=== PATIENT | male | born 1970 | race Asian ===

== ENCOUNTER 2024-08-31 22:31 | Inpatient (IN) | payer MEDICAID, OTHER ==
[~2024-08-31] VITALS: Ht 185.4 cm; Wt 71.2 kg
[2024-08-31] MEDS ORDERED: CLINDAMYCIN 600 MG PIGGYBACK**ER OMNI IV ONE (23:47)
[2024-08-31] MEDS ORDERED: levoFLOXacin 750MG/D5W 150 ML IV ONE (23:48)
[2024-08-31 23:57] LABS: BASOPHILS % (AUTO) 0.3 % (0.0-2.0); DIFFERENTIAL COMMENT 1; EOSINOPHILS # (AUTO) 0.1 K/uL (0.0-0.7); EOSINOPHILS % (AUTO) 2.5 % (0.0-7.0); HEMATOCRIT 35.3 % (36.7-47.1); HEMOGLOBIN 12.3 g/dL (12.5-16.3); LYMPHOCYTES # (AUTO) 0.7 K/uL (0.8-4.8); LYMPHOCYTES % (AUTO) 19.7 % (20.5-51.5); MEAN CORPUSCULAR HEMOGLOBIN 32.8 uug (23.8-33.4); MEAN CORPUSCULAR HGB CONC 35 g/dL (32.5-36.3); MEAN CORPUSCULAR VOLUME 94.1 fL (73.0-96.2); MONOCYTES # (AUTO) 0.2 K/uL (0.1-1.30); MONOCYTES % (AUTO) 6.5 % (0.0-11.0); NEUTROPHILS # (AUTO) 2.5 K/uL (1.8-8.9); PLATELET COUNT (AUTO) 112 K/uL (152-348); RED BLOOD CELL COUNT(AUTO) 3.75 MIL/uL (4.06-5.63); RED CELL DISTRIBUTION WIDTH 14.6 % (12.1-16.2); WHITE BLOOD COUNT (AUTO) 3.5 K/uL (3.6-10.2)
[2024-09-01] VITALS (7 sets, daily range): BP systolic 103–155; BP diastolic 66–82; TEMP 97.7–100.9; O2SAT 89–97
[2024-09-01] MEDS: CLINDAMYCIN PHOSPHATE IV 600 MG in IV DEXTROSE 5% 100 ML IV ONE (00:06)
[2024-09-01] MEDS: levoFLOXacin 750MG/D5W 150 ML IV ONE (00:07)
[2024-09-01] MEDS: IV NORMAL SALINE 1000 ML BAG IV ONE (00:07)
[2024-09-01 00:13] LABS: CALCIUM 9.1 mg/dL (8.5-10.1); CARBON DIOXIDE 30 mmol/L (21-32); CHLORIDE 97 mmol/L (98-107); CREATININE 1.1 mg/dL (0.6-1.3); GLUCOSE 103 mg/dL (74-106); POTASSIUM 3.9 mmol/L (3.5-5.1); SODIUM SERUM 135 mmol/L (136-145); UREA NITROGEN, BLOOD 18 mg/dL (7-18)
[2024-09-01 00:28] LABS: ALANINE AMINOTRANSFERASE 14 U/L (16-63); ALBUMIN 3.1 g/dL (3.4-5.0); ALKALINE PHOSPHATASE 72 U/L (50-136); ASPARTATE AMINOTRANSFERASE 9 U/L (15-37); BILIRUBIN,DIRECT 0.3 mg/dL (0.0-0.2); NT-PRO BNP 508 pg/mL (0-125); TOTAL PROTEIN, SERUM 7.3 g/dL (6.4-8.2)
[2024-09-01] MEDS ORDERED: MAGNESIUM HYDROXIDE 30 ML LIQUID UDC PO PRN (04:00)
[2024-09-01] MEDS ORDERED: ONDANSETRON 4 MG/2 ML VIAL IV PRN (04:00)
[2024-09-01] MEDS ORDERED: REMEDY ESSENTIAL ZINC PASTE 113 GM TP PRN (04:00)
[2024-09-01] MEDS ORDERED: ENOXAPARIN SODIUM 40 MG/0.4 ML DISP.SYRIN SQ ONE (05:05)
[2024-09-01] MEDS ORDERED: DIATR MEGLU/DIATRIZOATE SODIUM 30 ML BOTTLE ONE (06:28)
[2024-09-01] MEDS: DIATR MEGLU/DIATRIZOATE SODIUM 120 ML BOTTLE PO ONE (06:36)
[2024-09-01 07:23] LABS: BASOPHILS % (AUTO) 0.3 % (0.0-2.0); EOSINOPHILS % (AUTO) 0.9 % (0.0-7.0); HEMATOCRIT 32.9 % (36.7-47.1); HEMOGLOBIN 11.4 g/dL (12.5-16.3); LYMPHOCYTES # (AUTO) 0.4 K/uL (0.8-4.8); LYMPHOCYTES % (AUTO) 14.2 % (20.5-51.5); MEAN CORPUSCULAR HEMOGLOBIN 32.7 uug (23.8-33.4); MEAN CORPUSCULAR HGB CONC 35 g/dL (32.5-36.3); MEAN CORPUSCULAR VOLUME 94.4 fL (73.0-96.2); MONOCYTES # (AUTO) 0.2 K/uL (0.1-1.30); MONOCYTES % (AUTO) 6.3 % (0.0-11.0); NEUTROPHILS # (AUTO) 2.1 K/uL (1.8-8.9); NEUTROPHILS % (AUTO) 78.3 % (38.5-71.5); PLATELET COUNT (AUTO) 103 K/uL (152-348); RED BLOOD CELL COUNT(AUTO) 3.49 MIL/uL (4.06-5.63); RED CELL DISTRIBUTION WIDTH 14.4 % (12.1-16.2); WHITE BLOOD COUNT (AUTO) 2.7 K/uL (3.6-10.2)
[2024-09-01 07:30] LABS: DIFFERENTIAL COMMENT 1
[2024-09-01 08:17] LABS: CALCIUM 8.5 mg/dL (8.5-10.1); CREATININE 0.9 mg/dL (0.6-1.3); MAGNESIUM 1.6 mg/dL (1.8-2.4); PHOSPHOROUS 2.4 mg/dL (2.5-4.9); POTASSIUM 4.2 mmol/L (3.5-5.1)
[2024-09-01] MEDS: IV NS 1000 ML 1,000 ML IV PRN (09:50)
[2024-09-01] MEDS ORDERED: LIDOCAINE 4% TOPICAL 50 ML BOTTLE MC PRN (10:00)
[2024-09-01] MEDS: MAGNESIUM SULFATE/D5W 100 ML IV SCH (10:04)
[2024-09-01] MEDS: ACETAMINOPHEN 325 MG TABLET PO PRN (10:04)
[2024-09-01] MEDS: PANTOPRAZOLE SODIUM 40 MG VIAL IV SCH (10:05)
[2024-09-01] MEDS: ENOXAPARIN SODIUM 40 MG/0.4 ML DISP.SYRIN SQ SCH (10:05)
[2024-09-01 11:05] LABS: BAND % (MANUAL) 11 % (0-10); LYMPHOCYTES % (MANUAL) 15 % (20-40); MONOCYTES % (MANUAL) 5 % (2-10); NEUTROPHILS % (MANUAL) 69 % (42-75); PLATELET ESTIMATE DECREASED
[2024-09-01] MEDS ORDERED: ACET325T53 PO (12:42)
[2024-09-01] MEDS ORDERED: ACID1TAB12 GT (12:42)
[2024-09-01] MEDS ORDERED: ALBU2.5V38 IH (12:43)
[2024-09-01] MEDS ORDERED: ALBU2.5V13 IH (12:45)
[2024-09-01] MEDS ORDERED: BISA10SU95 RC (12:46)
[2024-09-01] MEDS ORDERED: CHLO473M5 MM (12:46)
[2024-09-01] MEDS ORDERED: CRAN450T9 GT (12:47)
[2024-09-01] MEDS ORDERED: FAMO20TA8 GT (12:53)
[2024-09-01] MEDS ORDERED: MULT-1119 GT (12:53)
[2024-09-01] MEDS ORDERED: MELA3CAP2 PO (12:53)
[2024-09-01] MEDS ORDERED: MAGN400T26 GT (12:53)
[2024-09-01] MEDS ORDERED: RIVA10TA GT (13:03)
[2024-09-01] MEDS ORDERED: POLY17PO4 GT (13:03)
[2024-09-01] MEDS ORDERED: CHOL100062 GT (13:03)
[2024-09-01] MEDS ORDERED: GUAI237L83 GT (13:03)
[2024-09-01] MEDS ORDERED: SENN8.6T19 GT (13:03)
[2024-09-01] MEDS: SODIUM PHOSPHATE MM 15 MMOL in IV NORMAL SALINE 250 ML IV ONE (18:21)
[2024-09-01] MEDS: HYDROCODONE BIT/HOMATROPINE 5 ML UDC PEG PRN (18:52)
[2024-09-02] VITALS (10 sets, daily range): BP systolic 124–145; BP diastolic 69–94; TEMP 98.3–101.2; O2SAT 90–99
[2024-09-02] MEDS ORDERED: levoFLOXacin 500 MG/D5W 500 MG in PREMIXED 1 EACH IV SCH
[2024-09-02] MEDS: LIDOCAINE 4% NEB PRN (00:24)
[2024-09-02] MEDS: ALBUTEROL SULFATE 2.5 MG/3 ML NEBU NEB PRN (00:24)
[2024-09-02] MEDS: levoFLOXacin 750MG/D5W 750 MG in PREMIXED 1 EACH IV SCH (00:28)
[2024-09-02] MEDS: GUAIFENESIN/DEXTROMETHORPHAN 5 ML UDC GT PRN (04:16)
[2024-09-02 06:14] LABS: ABG BASE EXCESS -1.7 mmol/L (-2.0-3.0); ABG HCO3 22.6 mmol/L (21.0-28.0); ABG PCO2 37.1 mmHg (35.0-48.0); ABG PH 7.403 (7.350-7.450); ABG PO2 61.3 mmHg (83.0-108.0); ABG SITE RIGHT RADIAL; ABG TOTAL HEMOGLOBIN 13.9 G/dL (13.5-17.5); AaDO2 91.7 mmHg; COHb 0.4 % (0.5-1.5); MetHb 0.1 % (0.0-1.5); O2Hb 91.1 % (94.0-98.0)
[2024-09-02 07:03] LABS: BASOPHILS % (AUTO) 0.1 % (0.0-2.0); EOSINOPHILS % (AUTO) 0.1 % (0.0-7.0); HEMATOCRIT 31.8 % (36.7-47.1); HEMOGLOBIN 10.9 g/dL (12.5-16.3); LYMPHOCYTES # (AUTO) 0.2 K/uL (0.8-4.8); LYMPHOCYTES % (AUTO) 7.4 % (20.5-51.5); MEAN CORPUSCULAR HEMOGLOBIN 32.7 uug (23.8-33.4); MEAN CORPUSCULAR HGB CONC 34 g/dL (32.5-36.3); MEAN CORPUSCULAR VOLUME 95.1 fL (73.0-96.2); MONOCYTES # (AUTO) 0.3 K/uL (0.1-1.30); MONOCYTES % (AUTO) 10.1 % (0.0-11.0); NEUTROPHILS # (AUTO) 2.4 K/uL (1.8-8.9); NEUTROPHILS % (AUTO) 82.3 % (38.5-71.5); PLATELET COUNT (AUTO) 102 K/uL (152-348); RED BLOOD CELL COUNT(AUTO) 3.35 MIL/uL (4.06-5.63); RED CELL DISTRIBUTION WIDTH 14.5 % (12.1-16.2); WHITE BLOOD COUNT (AUTO) 2.9 K/uL (3.6-10.2)
[2024-09-02 07:18] LABS: DIFFERENTIAL COMMENT 1
[2024-09-02 07:35] LABS: CALCIUM 8.2 mg/dL (8.5-10.1); PHOSPHOROUS 3.3 mg/dL (2.5-4.9); POTASSIUM 3.8 mmol/L (3.5-5.1)
[2024-09-02] MEDS: GLUCERNA 1.2 1000ML LIQUID GT PRN (09:50)
[2024-09-02 11:52] LABS: BAND % (MANUAL) 12 % (0-10); LYMPHOCYTES % (MANUAL) 15 % (20-40); METAMYELOCYTES % 3 % (0-1); MONOCYTES % (MANUAL) 8 % (2-10); NEUTROPHILS % (MANUAL) 62 % (42-75)
[2024-09-02 11:53] LABS: PLATELET ESTIMATE DECREASED
[2024-09-02] MEDS ORDERED: DIABETICSOURCE AC 1000ML LIQUID GT SCH (12:00)
[2024-09-02] MEDS ORDERED: BISACODYL 10 MG SUPP.RECT RC PRN (22:00)
[2024-09-02] MEDS ORDERED: SENNOSIDES 1 TABLET GT PRN (22:00)
[2024-09-02] MEDS ORDERED: ACETAMINOPHEN 325 MG TABLET-SA PATIENTS-PAIN ONLY PO PRN (22:00)
[2024-09-02] MEDS: MELATONIN 3 MG TABLET PO SCH (23:09)
[2024-09-03] VITALS (13 sets, daily range): BP systolic 114–149; BP diastolic 68–88; TEMP 96.8–100.4; O2SAT 91–98
[2024-09-03] MEDS: ACETAMINOPHEN 325 MG TABLET PO PRN (05:33)
[2024-09-03 07:42] LABS: BASOPHILS % (AUTO) 0.3 % (0.0-2.0); EOSINOPHILS % (AUTO) 0.9 % (0.0-7.0); HEMATOCRIT 30.7 % (36.7-47.1); HEMOGLOBIN 10.6 g/dL (12.5-16.3); LYMPHOCYTES # (AUTO) 0.6 K/uL (0.8-4.8); LYMPHOCYTES % (AUTO) 20.1 % (20.5-51.5); MEAN CORPUSCULAR HEMOGLOBIN 32.9 uug (23.8-33.4); MEAN CORPUSCULAR HGB CONC 35 g/dL (32.5-36.3); MONOCYTES # (AUTO) 0.5 K/uL (0.1-1.30); NEUTROPHILS # (AUTO) 1.8 K/uL (1.8-8.9); NEUTROPHILS % (AUTO) 61.7 % (38.5-71.5); PLATELET COUNT (AUTO) 105 K/uL (152-348); RED BLOOD CELL COUNT(AUTO) 3.23 MIL/uL (4.06-5.63); RED CELL DISTRIBUTION WIDTH 14.1 % (12.1-16.2); WHITE BLOOD COUNT (AUTO) 2.9 K/uL (3.6-10.2)
[2024-09-03 07:49] LABS: DIFFERENTIAL COMMENT 1
[2024-09-03 07:59] LABS: LYMPHOCYTES % (MANUAL) 0 % (20-40); NEUTROPHILS % (MANUAL) 0 % (42-75)
[2024-09-03] MEDS: PANTOPRAZOLE ORAL SUSPENSION 40 MG SUSPDR.PKT GT SCH (08:07)
[2024-09-03] MEDS: MULTIVITAMINS,THERAPEUTIC TABLET GT SCH (08:07)
[2024-09-03] MEDS: ACIDOPHILUS/BULGARICUS CHEW TAB GT SCH (08:08)
[2024-09-03] MEDS: MIRALAX 17 GM POWD.PACK GT SCH (08:08)
[2024-09-03 08:09] LABS: ALBUMIN 2.4 g/dL (3.4-5.0); BILIRUBIN,DIRECT 0.2 mg/dL (0.0-0.2); BILIRUBIN,TOTAL 0.5 mg/dL (0.2-1.0); CREATININE 0.9 mg/dL (0.6-1.3); MAGNESIUM 1.9 mg/dL (1.8-2.4); PHOSPHOROUS 3.5 mg/dL (2.5-4.9); POTASSIUM 3.8 mmol/L (3.5-5.1); TOTAL PROTEIN, SERUM 6.3 g/dL (6.4-8.2)
[2024-09-03] MEDS: CHLORHEXIDINE GLUCONATE 15 ML MOUTHWASH MM SCH (08:10)
[2024-09-03] MEDS ORDERED: MULTIVITAMINS 5 ML LIQUID UDC GT SCH (09:00)
[2024-09-03 09:40] LABS: THYROID STIMULATING HORMONE 0.625 mIU/mL (0.358-3.740)
[2024-09-03 13:08] LABS: HIV-1 p24 ANTIGEN NON REACTIVE (NONREACTIVE); HIV-1/2 ANTIBODY NON REACTIVE (NONREACTIVE)
[2024-09-03] MEDS: PIPERACILLIN SODIUM/TAZOBACTAM 3.375 G in IV DEXTROSE 5% 100 ML IV SCH (14:44)
[2024-09-03] MEDS: ALBUTEROL SULFATE 2.5 MG/ 0.5 ML NEBU IH PRN (16:43)
[2024-09-03] MEDS ORDERED: PIPERACILLIN SODIUM/TAZOBACTAM 4.5 G in IV DEXTROSE 5% 50 ML IV SCH (18:00)
[2024-09-03] MEDS: RIVAROXABAN 10 MG TABLET GT SCH (18:12)
[2024-09-03 20:02] LABS: *RHEUMATOID FACTOR SCREEN NEGATIVE (NEGATIVE)
[2024-09-03] MEDS: MAGNESIUM OXIDE 400 MG TABLET GT SCH (20:39)
[2024-09-03] MEDS: CHOLECALCIFEROL 1,000 UNIT TABLET GT SCH (20:39)
[2024-09-03] MEDS: DOXYCYCLINE HYCLATE IV 100 MG in IV DEXTROSE 5% 100 ML IV SCH (20:40)
[2024-09-04] VITALS (11 sets, daily range): BP systolic 108–139; BP diastolic 66–94; TEMP 97–99.6; O2SAT 91–99
[2024-09-04 06:06] LABS: BASOPHILS % (AUTO) 0.5 % (0.0-2.0); EOSINOPHILS % (AUTO) 1.1 % (0.0-7.0); HEMATOCRIT 30.4 % (36.7-47.1); HEMOGLOBIN 10.6 g/dL (12.5-16.3); LYMPHOCYTES # (AUTO) 0.4 K/uL (0.8-4.8); MEAN CORPUSCULAR HEMOGLOBIN 32.9 uug (23.8-33.4); MEAN CORPUSCULAR HGB CONC 35 g/dL (32.5-36.3); MEAN CORPUSCULAR VOLUME 94.4 fL (73.0-96.2); MONOCYTES # (AUTO) 0.4 K/uL (0.1-1.30); MONOCYTES % (AUTO) 14.4 % (0.0-11.0); NEUTROPHILS # (AUTO) 1.8 K/uL (1.8-8.9); PLATELET COUNT (AUTO) 100 K/uL (152-348); RED BLOOD CELL COUNT(AUTO) 3.22 MIL/uL (4.06-5.63); RED CELL DISTRIBUTION WIDTH 14.4 % (12.1-16.2); WHITE BLOOD COUNT (AUTO) 2.7 K/uL (3.6-10.2)
[2024-09-04 06:20] LABS: DIFFERENTIAL COMMENT 1
[2024-09-04] MEDS: FUROSEMIDE 20 MG/2 ML VIAL IV ONE (11:43)
[2024-09-05] VITALS (8 sets, daily range): BP systolic 97–130; BP diastolic 63–75; TEMP 97.3–98.6; O2SAT 91–98
[2024-09-05 05:47] LABS: ABG BASE EXCESS 6.3 mmol/L (-2.0-3.0); ABG HCO3 30.8 mmol/L (21.0-28.0); ABG PCO2 44.1 mmHg (35.0-48.0); ABG PH 7.462 (7.350-7.450); ABG PO2 72.4 mmHg (83.0-108.0); ABG SITE LEFT RADIAL; ABG TOTAL HEMOGLOBIN 11.8 G/dL (13.5-17.5); AaDO2 95.3 mmHg; COHb 0.3 % (0.5-1.5); MetHb 0.3 % (0.0-1.5); O2Hb 93.5 % (94.0-98.0)
[2024-09-05 06:28] LABS: BASOPHILS % (AUTO) 0.5 % (0.0-2.0); EOSINOPHILS # (AUTO) 0.1 K/uL (0.0-0.7); EOSINOPHILS % (AUTO) 3.2 % (0.0-7.0); HEMATOCRIT 32.1 % (36.7-47.1); HEMOGLOBIN 10.7 g/dL (12.5-16.3); LYMPHOCYTES # (AUTO) 0.8 K/uL (0.8-4.8); LYMPHOCYTES % (AUTO) 30.5 % (20.5-51.5); MEAN CORPUSCULAR HEMOGLOBIN 31.3 uug (23.8-33.4); MEAN CORPUSCULAR HGB CONC 33 g/dL (32.5-36.3); MEAN CORPUSCULAR VOLUME 94.1 fL (73.0-96.2); MONOCYTES # (AUTO) 0.3 K/uL (0.1-1.30); MONOCYTES % (AUTO) 12.7 % (0.0-11.0); NEUTROPHILS # (AUTO) 1.3 K/uL (1.8-8.9); NEUTROPHILS % (AUTO) 53.1 % (38.5-71.5); PLATELET COUNT (AUTO) 121 K/uL (152-348); RED BLOOD CELL COUNT(AUTO) 3.41 MIL/uL (4.06-5.63); RED CELL DISTRIBUTION WIDTH 13.9 % (12.1-16.2); WHITE BLOOD COUNT (AUTO) 2.5 K/uL (3.6-10.2)
[2024-09-05 06:34] LABS: DIFFERENTIAL COMMENT 1
[2024-09-05 06:43] LABS: CALCIUM 8.9 mg/dL (8.5-10.1); CREATININE 0.8 mg/dL (0.6-1.3); MAGNESIUM 2.2 mg/dL (1.8-2.4); PHOSPHOROUS 4.7 mg/dL (2.5-4.9); POTASSIUM 3.3 mmol/L (3.5-5.1)
[2024-09-05 06:49] LABS: THYROID STIMULATING HORMONE 1.597 mIU/mL (0.358-3.740)
[2024-09-05] MEDS ORDERED: POTASSIUM CHLORIDE 20 MEQ TAB.PRT.SR PO ONE (12:30)
[2024-09-05] MEDS: POTASSIUM CHLORIDE 20 MEQ POWDER PACKET GT ONE (13:52)
[2024-09-06] VITALS (10 sets, daily range): BP systolic 108–146; BP diastolic 46–85; TEMP 97.1–98.4; O2SAT 92–97
[2024-09-06 01:09] LABS: FOLATE (FOLIC ACID), SERUM >20.0 ng/mL (>3.0); HEPATITIS B SURFACE AG Negative (Negative); HEPATITIS C VIRUS ANTIBODY Non Reactive (Non Reactive)
[2024-09-06 04:10] LABS: HEPATITIS B CORE AB, IgM Negative (Negative); HEPATITIS B CORE AB, TOTAL Negative (Negative); HEPATITIS B SURFACE AB, QUAL Reactive (.)
[2024-09-06 04:10] LABS: *IMMUNOGLOBULIN G, SERUM 715 mg/dL (603-1613); IMMUNOGLOBULIN A, SERUM 1080 mg/dL (90-386); IMMUNOGLOBULIN M, SERUM 23 mg/dL (20-172)
[2024-09-06 06:59] LABS: BASOPHILS % (AUTO) 0.4 % (0.0-2.0); EOSINOPHILS # (AUTO) 0.1 K/uL (0.0-0.7); EOSINOPHILS % (AUTO) 3.7 % (0.0-7.0); HEMATOCRIT 30.7 % (36.7-47.1); HEMOGLOBIN 10.7 g/dL (12.5-16.3); LYMPHOCYTES # (AUTO) 0.9 K/uL (0.8-4.8); LYMPHOCYTES % (AUTO) 28.6 % (20.5-51.5); MEAN CORPUSCULAR HEMOGLOBIN 32.5 uug (23.8-33.4); MEAN CORPUSCULAR HGB CONC 35 g/dL (32.5-36.3); MEAN CORPUSCULAR VOLUME 92.8 fL (73.0-96.2); MONOCYTES # (AUTO) 0.3 K/uL (0.1-1.30); MONOCYTES % (AUTO) 8.4 % (0.0-11.0); NEUTROPHILS # (AUTO) 1.8 K/uL (1.8-8.9); NEUTROPHILS % (AUTO) 58.9 % (38.5-71.5); PLATELET COUNT (AUTO) 140 K/uL (152-348); RED BLOOD CELL COUNT(AUTO) 3.31 MIL/uL (4.06-5.63); RED CELL DISTRIBUTION WIDTH 14.4 % (12.1-16.2)
[2024-09-06 07:07] LABS: FREE KAPPA LT CHAINS SERUM 249.4 mg/L (3.3-19.4); FREE LAMBDA LT CHAIN SERUM 17.3 mg/L (5.7-26.3); KAPPA/LAMBDA RATIO SERUM 14.42 (0.26-1.65)
[2024-09-06 07:45] LABS: DIFFERENTIAL COMMENT 1
[2024-09-06 15:07] LABS: *ANTI-SCLERODERMA-70 AB <0.2 AI (0.0-0.9); *RNP ANTIBODIES <0.2 AI (0.0-0.9); *SJOGREN'S ANTI-SS-A <0.2 AI (0.0-0.9); *SJOGREN'S ANTI-SS-B <0.2 AI (0.0-0.9); *SMITH ANTIBODIES <0.2 AI (0.0-0.9); ANTI-DNA(DS) AB, QN <1 IU/mL (0-9); ANTI-NUCLEAR AB DIRECT Negative (Negative)
[2024-09-06 16:11] LABS: A/G RATIO 0.9 (0.7-1.7); ALBUMIN 2.9 g/dL (2.9-4.4); ALPHA-1-GLOBULIN 0.4 g/dL (0.0-0.4); ALPHA-2-GLOBULIN 0.9 g/dL (0.4-1.0); BETA GLOBULIN 1.5 g/dL (0.7-1.3); GAMMA GLOBULIN 0.6 g/dL (0.4-1.8); GLOBULIN, TOTAL 3.4 g/dL (2.2-3.9); M-SPIKE 0.9 g/dL (Not Observed); PROTEIN, TOTAL 6.3 g/dL (6.0-8.5)
[2024-09-06] MEDS ORDERED: LIDOCAINE HCL 1% 20 ML VIAL IJ PRN (17:00)
[2024-09-06] MEDS: RIVAROXABAN 10 MG TABLET GT SCH (18:53)
[2024-09-07] VITALS (8 sets, daily range): BP systolic 118–145; BP diastolic 76–88; TEMP 97.5–98.4; O2SAT 90–96
[2024-09-07] MEDS: ACETYLCYSTEINE 20% 800 MG/4 ML VIAL NEB PRN (00:06)
[2024-09-07 06:31] LABS: BASOPHILS % (AUTO) 0.3 % (0.0-2.0); EOSINOPHILS # (AUTO) 0.1 K/uL (0.0-0.7); EOSINOPHILS % (AUTO) 0.9 % (0.0-7.0); HEMATOCRIT 31.1 % (36.7-47.1); HEMOGLOBIN 10.9 g/dL (12.5-16.3); LYMPHOCYTES # (AUTO) 0.7 K/uL (0.8-4.8); LYMPHOCYTES % (AUTO) 10.2 % (20.5-51.5); MEAN CORPUSCULAR HEMOGLOBIN 32.5 uug (23.8-33.4); MEAN CORPUSCULAR HGB CONC 35 g/dL (32.5-36.3); MEAN CORPUSCULAR VOLUME 92.9 fL (73.0-96.2); MONOCYTES # (AUTO) 0.2 K/uL (0.1-1.30); MONOCYTES % (AUTO) 3.4 % (0.0-11.0); NEUTROPHILS # (AUTO) 5.6 K/uL (1.8-8.9); NEUTROPHILS % (AUTO) 85.2 % (38.5-71.5); PLATELET COUNT (AUTO) 152 K/uL (152-348); RED BLOOD CELL COUNT(AUTO) 3.35 MIL/uL (4.06-5.63); RED CELL DISTRIBUTION WIDTH 14.1 % (12.1-16.2); WHITE BLOOD COUNT (AUTO) 6.5 K/uL (3.6-10.2)
[2024-09-07 06:40] LABS: DIFFERENTIAL COMMENT 1
[2024-09-07 07:03] LABS: CREATININE 1.1 mg/dL (0.6-1.3); POTASSIUM 3.5 mmol/L (3.5-5.1)
[2024-09-07 13:09] LABS: *OCCULT BLOOD STOOL NEGATIVE (NEGATIVE)
[2024-09-07] MEDS: PIPERACILLIN SODIUM/TAZOBACTAM 3.375 G in IV DEXTROSE 5% 50 ML IV SCH (13:40)
== END 2024-09-07 15:20 | DRG 720 ==
LOC: ER 22:42 → TELE3 09-01 07:53
PROVIDERS: ADMIT Nurse Practitioner Family; ATTEND Internal Medicine
PROC: 05HC33Z Insertion of Infusion Device into Left Basilic Vein, Percutaneous Approach (ICD-10-PCS; principal; 2024-09-05)
DX: A41.9 Sepsis, unspecified organism (principal); J96.01 Acute respiratory failure with hypoxia; J69.0 Pneumonitis due to inhalation of food and vomit; G92.8 Other toxic encephalopathy; D61.818 Other pancytopenia; K22.2 Esophageal obstruction; D68.59 Other primary thrombophilia; J18.9 Pneumonia, unspecified organism; J20.9 Acute bronchitis, unspecified; Z98.2 Presence of cerebrospinal fluid drainage device; D47.2 Monoclonal gammopathy; E83.42 Hypomagnesemia; Z93.1 Gastrostomy status; D72.821 Monocytosis (symptomatic); Z87.01 Personal history of pneumonia (recurrent); Z87.820 Personal history of traumatic brain injury; J98.11 Atelectasis; R65.20 Severe sepsis without septic shock; I10 Essential (primary) hypertension; Z86.39 Personal history of other endocrine, nutritional and metabolic disease
CPT/HCPCS: 36415; 36600; 71045; 74018; 76700; 82746; 82784; 82803; 83550; 83605; 83735; 84100; 84155; 84165; 84443; 84484; 85025; 85730; 86038; 86140; 86334; 86430; 86704; 86705; 86706; 86803; 87040; 87340; 87806; 88185; 93005; 94640; 94664; 94760; G0378; J1650; J1940; J1956; J2470; J2543; J3475; J3490; J7040; Q9963